=== PATIENT | female | born 1935 | race Asian ===

== ENCOUNTER 2019-02-14 15:58 | Inpatient (IN) | payer OTHER, MEDICAID ==
[~2019-02-14] VITALS: Ht 160 cm; Wt 54.4 kg
[2019-02-14 16:16] VITALS: BP_SYST 130
[2019-02-14] MEDS ORDERED: CARB-61 PO (16:22)
[2019-02-14] MEDS ORDERED: [UNRECOGNIZED DRUG - CODE] PO (16:22)
[2019-02-14] MEDS ORDERED: LINA290C PO (16:30)
[2019-02-14] MEDS ORDERED: DOCU250C14 PO (16:30)
[2019-02-14] MEDS ORDERED: HYDR-4038 PO (16:30)
[2019-02-14] MEDS ORDERED: AMLO5TAB4 PO (16:30)
[2019-02-14] MEDS ORDERED: VITD2000 PO (16:30)
[2019-02-14] MEDS ORDERED: CALC500T3 PO (16:30)
[2019-02-14] MEDS ORDERED: DEXL60CA4 PO (16:30)
[2019-02-14] MEDS ORDERED: RIVA15TA PO (16:30)
[2019-02-14] MEDS ORDERED: PRAM1TAB4 PO (16:30)
[2019-02-14 17:14] LABS: BASOPHILS % (AUTO) 0.5 % (0.0-2.0); EOSINOPHILS # (AUTO) 0.1 K/uL (0.0-0.4); EOSINOPHILS % (AUTO) 1.4 % (0.0-4.0); HEMATOCRIT 41.5 % (36-48); HEMOGLOBIN 13.8 g/dL (12.0-16.0); LYMPHOCYTES % (AUTO) 16.9 % (20.5-51.5); MEAN CORPUSCULAR HEMOGLOBIN 32 pg (27-31); MEAN CORPUSCULAR HGB CONC 33 % (32-36); MEAN CORPUSCULAR VOLUME 96 fL (79.0-98.0); MONOCYTES # (AUTO) 0.5 K/uL (0.0-1.0); MONOCYTES % (AUTO) 8.4 % (1.7-9.3); NEUTROPHILS # (AUTO) 4.3 K/uL (1.8-7.7); NEUTROPHILS % (AUTO) 72.8 % (40.0-70.0); PLATELET COUNT (AUTO) 121 K/uL (130-430); RED BLOOD CELL COUNT(AUTO) 4.35 MIL/uL (4.2-6.2); RED CELL DISTRIBUTION WIDTH 13.9 % (9.0-15.0); WHITE BLOOD COUNT (AUTO) 5.9 K/uL (4.8-10.8)
[2019-02-14 17:25] LABS: ANION GAP 8 (5-15); CALCIUM 9.2 mg/dL (8.4-11.0); CHLORIDE 106 mmol/L (98-107); CREATININE 1.12 mg/dL (0.55-1.30); GLUCOSE 113 mg/dL (70-99); POTASSIUM 3.9 mmol/L (3.5-5.1); SODIUM SERUM 137 mmol/L (136-145); UREA NITROGEN, BLOOD 39 mg/dL (8-21)
[2019-02-14 17:29] LABS: ALANINE AMINOTRANSFERASE 11 U/L (12-78); ALBUMIN 3.6 g/dL (3.4-4.8); ASPARTATE AMINOTRANSFERASE 14 U/L (10-37); TOTAL BILIRUBIN 0.9 mg/dL (0.0-1.0)
[2019-02-14 17:41] LABS: BILIRUBIN,URINE NEGATIVE (NEGATIVE); BLOOD, URINE NEGATIVE (NEGATIVE); CLARITY/URINE SL CLOUDY (CLEAR); COLOR,URINE YELLOW (YELLOW); GLUCOSE,URINE NEGATIVE (NEGATIVE); KETONES,URINE TRACE (NEGATIVE); LEUKOCYTE ESTERASE ,URINE 1+ (NEGATIVE); NITRITE, URINE POSITIVE (NEGATIVE); PH,URINE 5.5 (5.0-8.0); PROTEIN URINE TRACE (NEGATIVE)
[2019-02-14 17:45] LABS: BACTERIA,URINE MANY /HPF (None Seen); MUCUS,URINE 2+ /LPF (None Seen); WBC,URINE 20-50 /HPF (0-3)
[2019-02-14] MEDS ORDERED: LORazepam 2 MG/ML VIAL (FOR ER USE) IM ONE (18:00)
[2019-02-14] MEDS ORDERED: LORazepam 2 MG/ML VIAL (FOR ER USE) ONE (18:03)
[2019-02-14] MEDS ORDERED: KETAMINE 30 MG/3 ML SYRINGE IVP ONE (18:30)
[2019-02-14] MEDS ORDERED: HALOPERIDOL LACTATE 5 MG/ML VIAL IVP ONE (19:15)
[2019-02-14] MEDS ORDERED: cefTRIAXone 1 GM IVPB PREMIX 50 ML IV ONE (19:45)
[2019-02-14 20:14] VITALS: BP_SYST 155
[2019-02-14] MEDS: CALCIUM 500 MG/TAB PO SCH (21:00)
[2019-02-14] MEDS: hydrALAZINE HCL 25 MG TABLET PO SCH (21:00)
[2019-02-14] MEDS: KCL 20 mEq in D5/0.45NS 1000mL 1,000 ML IV SCH (21:45)
[2019-02-14] MEDS ORDERED: KCL 20 mEq in D5/0.45NS 1000mL 1,000 ML IV ONE (21:46)
[2019-02-14] MEDS ORDERED: LEVODOPA PO SCH (22:00)
[2019-02-14] MEDS ORDERED: CARBIDOPA PO SCH (22:00)
[2019-02-14] MEDS: CARBIDOPA/LEVODOPA 25/100 MG TABLET PO SCH (22:00)
[2019-02-15] VITALS (12 sets, daily range): BP systolic 135–163
[2019-02-15] MEDS ORDERED: CEFEPIME 1 GM in D5W 50 ML IV SCH (00:30)
[2019-02-15] MEDS ORDERED: CEFEPIME 1 GM/VIAL (MAXIPIME) ONE (01:03)
[2019-02-15] MEDS: CHOLECALCIFEROL (VITAMIN D3) 2,000 UNIT TABLET PO SCH (09:00)
[2019-02-15] MEDS: CALCIUM 500 MG/TAB PO SCH ×2 (09:00→21:06)
[2019-02-15] MEDS: hydrALAZINE HCL 25 MG TABLET PO SCH ×3 (09:00→21:07)
[2019-02-15] MEDS ORDERED: NON-FORMULARY MEDICATION (Linaclotide (Linzess) 290 MCG) PO SCH (09:00)
[2019-02-15] MEDS: PRAMIPEXOLE DI-HCL 1 MG TABLET PO SCH (09:00)
[2019-02-15] MEDS: RIVAROXABAN 15 MG TABLET PO SCH (09:00)
[2019-02-15] MEDS: PANTOPRAZOLE SODIUM 40 MG TAB PO SCH (09:00)
[2019-02-15] MEDS: amLODIPine BESYLATE 5 MG TABLET PO SCH (09:00)
[2019-02-15] MEDS: DOCUSATE SODIUM 250 MG CAPSULE PO SCH (09:00)
[2019-02-15] MEDS: CARBIDOPA/LEVODOPA 25/100 MG TABLET PO SCH ×4 (10:00→21:07)
[2019-02-15] MEDS ORDERED: FLUMAZENIL 0.1 MG/ML IVP ONE ×2 (10:30→12:45)
[2019-02-15] MEDS: KCL 20 mEq in D5/0.45NS 1000mL 1,000 ML IV SCH (11:09)
[2019-02-15] MEDS: hydrALAZINE HCL 20 MG/ML VIAL IVP PRN (17:59)
[2019-02-15] MEDS: CEFEPIME 1 GM in D5W 50 ML IV SCH (21:07)
[2019-02-16] VITALS (24 sets, daily range): BP systolic 106–163
[2019-02-16] MEDS: KCL 20 mEq in D5/0.45NS 1000mL 1,000 ML IV SCH ×3 (00:09→17:02)
[2019-02-16] MEDS: hydrALAZINE HCL 20 MG/ML VIAL IVP PRN (02:33)
[2019-02-16] MEDS ORDERED: DILTIAZEM HCL 25 MG/5 ML VIAL ONE (04:50)
[2019-02-16] MEDS ORDERED: DILTIAZEM HCL 125 MG/25 ML VIAL IV ONE (04:51)
[2019-02-16] MEDS ORDERED: DILTIAZEM HCL 125 MG in D5W 100 ML IV SCH (05:00)
[2019-02-16] MEDS ORDERED: DILTIAZEM HCL 25 MG/5 ML VIAL IVP ONE (05:00)
[2019-02-16] MEDS: CARBIDOPA/LEVODOPA 25/100 MG TABLET PO SCH ×5 (06:03→22:14)
[2019-02-16 06:14] LABS: BASOPHILS % (AUTO) 0.1 % (0.0-2.0); EOSINOPHILS % (AUTO) 0.1 % (0.0-4.0); HEMATOCRIT 45.4 % (36-48); HEMOGLOBIN 14.8 g/dL (12.0-16.0); LYMPHOCYTES # (AUTO) 0.3 K/uL (1.0-5.5); LYMPHOCYTES % (AUTO) 2.3 % (20.5-51.5); MEAN CORPUSCULAR HEMOGLOBIN 31 pg (27-31); MEAN CORPUSCULAR HGB CONC 33 % (32-36); MEAN CORPUSCULAR VOLUME 96 fL (79.0-98.0); MONOCYTES # (AUTO) 0.9 K/uL (0.0-1.0); MONOCYTES % (AUTO) 6.7 % (1.7-9.3); NEUTROPHILS # (AUTO) 12.2 K/uL (1.8-7.7); NEUTROPHILS % (AUTO) 90.8 % (40.0-70.0); PLATELET COUNT (AUTO) 147 K/uL (130-430); RED BLOOD CELL COUNT(AUTO) 4.75 MIL/uL (4.2-6.2); RED CELL DISTRIBUTION WIDTH 13.7 % (9.0-15.0); WHITE BLOOD COUNT (AUTO) 13.5 K/uL (4.8-10.8)
[2019-02-16 06:43] LABS: INR 0.9 (0.8-1.2); PROTHROMBIN TIME 9.5 SECS (9.5-12.5)
[2019-02-16 06:44] LABS: ANION GAP 12 (5-15); CALCIUM 9.4 mg/dL (8.4-11.0); CHLORIDE 109 mmol/L (98-107); CREATININE 0.78 mg/dL (0.55-1.30); GLUCOSE 185 mg/dL (70-99); POTASSIUM 3.4 mmol/L (3.5-5.1); SODIUM SERUM 144 mmol/L (136-145); UREA NITROGEN, BLOOD 26 mg/dL (8-21)
[2019-02-16 06:56] LABS: PHOSPHORUS 2.6 mg/dL (2.7-4.5)
[2019-02-16] MEDS: CALCIUM 500 MG/TAB PO SCH ×2 (09:24→22:14)
[2019-02-16] MEDS: AMIODARONE HCL 200 MG TABLET PO SCH ×2 (09:26→22:13)
[2019-02-16] MEDS: CHOLECALCIFEROL (VITAMIN D3) 2,000 UNIT TABLET PO SCH (09:26)
[2019-02-16] MEDS: DOCUSATE SODIUM 250 MG CAPSULE PO SCH (09:26)
[2019-02-16] MEDS: PANTOPRAZOLE SODIUM 40 MG TAB PO SCH (09:26)
[2019-02-16] MEDS: hydrALAZINE HCL 25 MG TABLET PO SCH ×3 (09:27→22:14)
[2019-02-16] MEDS: amLODIPine BESYLATE 5 MG TABLET PO SCH (09:28)
[2019-02-16] MEDS: PRAMIPEXOLE DI-HCL 1 MG TABLET PO SCH (09:30)
[2019-02-16] MEDS: RIVAROXABAN 15 MG TABLET PO SCH (09:31)
[2019-02-16] MEDS ORDERED: COMMUNICATION ORDER XX ONE (10:45)
[2019-02-16] MEDS: CARBIDOPA/LEVODOPA CR 50/200 MG TAB NG SCH ×4 (11:25→22:18)
[2019-02-16] MEDS ORDERED: CARBIDOPA/LEVODOPA CR 50/200 MG TAB PO SCH ×2 (14:00→22:00)
[2019-02-16] MEDS ORDERED: *TOBRAMYCIN PER PHARMACY XX PRN (18:00)
[2019-02-16] MEDS ORDERED: TOBRAMYCIN SULFATE 80 MG in NS 50 ML IV SCH (20:00)
[2019-02-16] MEDS: metroNIDAZOLE 500 mg/NS 100 ML IV SCH (22:15)
[2019-02-16] MEDS: CEFEPIME 1 GM in D5W 50 ML IV SCH (22:26)
[2019-02-17] VITALS (24 sets, daily range): BP systolic 97–170
[2019-02-17] MEDS: hydrALAZINE HCL 20 MG/ML VIAL IVP PRN (03:09)
[2019-02-17 05:18] LABS: BASOPHILS % (AUTO) 0.3 % (0.0-2.0); EOSINOPHILS % (AUTO) 0.3 % (0.0-4.0); HEMOGLOBIN 13.6 g/dL (12.0-16.0); LYMPHOCYTES # (AUTO) 0.8 K/uL (1.0-5.5); LYMPHOCYTES % (AUTO) 5.8 % (20.5-51.5); MEAN CORPUSCULAR HEMOGLOBIN 31 pg (27-31); MEAN CORPUSCULAR HGB CONC 32 % (32-36); MEAN CORPUSCULAR VOLUME 97 fL (79.0-98.0); MONOCYTES # (AUTO) 1.1 K/uL (0.0-1.0); MONOCYTES % (AUTO) 8.1 % (1.7-9.3); NEUTROPHILS # (AUTO) 11.5 K/uL (1.8-7.7); NEUTROPHILS % (AUTO) 85.5 % (40.0-70.0); PLATELET COUNT (AUTO) 141 K/uL (130-430); RED BLOOD CELL COUNT(AUTO) 4.34 MIL/uL (4.2-6.2); RED CELL DISTRIBUTION WIDTH 14.4 % (9.0-15.0); WHITE BLOOD COUNT (AUTO) 13.5 K/uL (4.8-10.8)
[2019-02-17 05:44] LABS: ALANINE AMINOTRANSFERASE 14 U/L (12-78); ALBUMIN 2.9 g/dL (3.4-4.8); ANION GAP 8 (5-15); ASPARTATE AMINOTRANSFERASE 19 U/L (10-37); CALCIUM 8.6 mg/dL (8.4-11.0); CHLORIDE 109 mmol/L (98-107); CHOLESTEROL 142 mg/dL (<200); CREATININE 0.68 mg/dL (0.55-1.30); GLUCOSE 161 mg/dL (70-99); HDL CHOLESTEROL 61 mg/dL (>55); LDL CHOLESTEROL 71 mg/dL (<100); SODIUM SERUM 139 mmol/L (136-145); TOTAL BILIRUBIN 0.8 mg/dL (0.0-1.0); TRIGLYCERIDES 59 mg/dL (30-150); UREA NITROGEN, BLOOD 23 mg/dL (8-21)
[2019-02-17] MEDS: CARBIDOPA/LEVODOPA 25/100 MG TABLET PO SCH ×5 (06:15→21:02)
[2019-02-17] MEDS: CARBIDOPA/LEVODOPA CR 50/200 MG TAB NG SCH ×5 (06:16→21:03)
[2019-02-17] MEDS: metroNIDAZOLE 500 mg/NS 100 ML IV SCH ×2 (08:57→21:03)
[2019-02-17] MEDS: KCL 20 mEq in D5/0.45NS 1000mL 1,000 ML IV SCH (08:57)
[2019-02-17] MEDS: AMIODARONE HCL 200 MG TABLET PO SCH ×2 (08:58→20:59)
[2019-02-17] MEDS: CALCIUM 500 MG/TAB PO SCH ×2 (08:59→20:58)
[2019-02-17] MEDS: amLODIPine BESYLATE 5 MG TABLET PO SCH (08:59)
[2019-02-17] MEDS: RIVAROXABAN 15 MG TABLET PO SCH (08:59)
[2019-02-17] MEDS: PANTOPRAZOLE SODIUM 40 MG TAB PO SCH (08:59)
[2019-02-17] MEDS: CHOLECALCIFEROL (VITAMIN D3) 2,000 UNIT TABLET PO SCH (08:59)
[2019-02-17] MEDS: DOCUSATE SODIUM 250 MG CAPSULE PO SCH (08:59)
[2019-02-17] MEDS: hydrALAZINE HCL 25 MG TABLET PO SCH ×3 (09:00→21:00)
[2019-02-17] MEDS: PRAMIPEXOLE DI-HCL 1 MG TABLET PO SCH (09:22)
[2019-02-17] MEDS: ACETAMINOPHEN 650 MG/20.3 ML UDC GT PRN (09:22)
[2019-02-17] MEDS ORDERED: MORPHINE 2 MG/ML INJ. SYRINGE IVP ONE (11:00)
[2019-02-17] MEDS: NS IV SCH (13:52)
[2019-02-17] MEDS: AMIKACIN SULFATE IV SCH (13:52)
[2019-02-17] MEDS: CEFEPIME 1 GM in D5W 50 ML IV SCH (21:03)
[2019-02-18] VITALS (7 sets, daily range): BP systolic 109–168
[2019-02-18] MEDS: ACETAMINOPHEN 650 MG/20.3 ML UDC GT PRN (00:19)
[2019-02-18] MEDS: hydrALAZINE HCL 20 MG/ML VIAL IVP PRN (00:20)
[2019-02-18] MEDS: KCL 20 mEq in D5/0.45NS 1000mL 1,000 ML IV SCH ×3 (00:21→16:09)
[2019-02-18] MEDS: CARBIDOPA/LEVODOPA 25/100 MG TABLET PO SCH ×5 (05:04→22:30)
[2019-02-18] MEDS: CARBIDOPA/LEVODOPA CR 50/200 MG TAB NG SCH ×5 (05:04→22:00)
[2019-02-18 07:27] LABS: BASOPHILS % (AUTO) 0.4 % (0.0-2.0); EOSINOPHILS # (AUTO) 0.1 K/uL (0.0-0.4); EOSINOPHILS % (AUTO) 0.6 % (0.0-4.0); HEMATOCRIT 36.8 % (36-48); LYMPHOCYTES # (AUTO) 0.8 K/uL (1.0-5.5); LYMPHOCYTES % (AUTO) 8.3 % (20.5-51.5); MEAN CORPUSCULAR HEMOGLOBIN 32 pg (27-31); MEAN CORPUSCULAR HGB CONC 33 % (32-36); MEAN CORPUSCULAR VOLUME 97 fL (79.0-98.0); MONOCYTES # (AUTO) 0.9 K/uL (0.0-1.0); MONOCYTES % (AUTO) 9.6 % (1.7-9.3); NEUTROPHILS # (AUTO) 7.6 K/uL (1.8-7.7); NEUTROPHILS % (AUTO) 81.1 % (40.0-70.0); WHITE BLOOD COUNT (AUTO) 9.4 K/uL (4.8-10.8)
[2019-02-18 08:08] LABS: ANION GAP 6 (5-15); CALCIUM 8.3 mg/dL (8.4-11.0); CHLORIDE 107 mmol/L (98-107); CREATININE 0.63 mg/dL (0.55-1.30); GLUCOSE 153 mg/dL (70-99); POTASSIUM 3.9 mmol/L (3.5-5.1); SODIUM SERUM 138 mmol/L (136-145); UREA NITROGEN, BLOOD 22 mg/dL (8-21)
[2019-02-18 08:44] LABS: PLATELET COUNT (AUTO) 110 K/uL (130-430)
[2019-02-18] MEDS: CALCIUM 500 MG/TAB PO SCH ×2 (09:20→22:00)
[2019-02-18] MEDS: DOCUSATE SODIUM 250 MG CAPSULE PO SCH (09:20)
[2019-02-18] MEDS: PANTOPRAZOLE SODIUM 40 MG TAB PO SCH (09:20)
[2019-02-18] MEDS: CHOLECALCIFEROL (VITAMIN D3) 2,000 UNIT TABLET PO SCH (09:20)
[2019-02-18] MEDS: amLODIPine BESYLATE 5 MG TABLET PO SCH (09:20)
[2019-02-18] MEDS: AMIODARONE HCL 200 MG TABLET PO SCH ×2 (09:21→21:59)
[2019-02-18] MEDS: metroNIDAZOLE 500 mg/NS 100 ML IV SCH ×2 (09:22→21:57)
[2019-02-18] MEDS: hydrALAZINE HCL 25 MG TABLET PO SCH ×3 (09:25→22:00)
[2019-02-18] MEDS: RIVAROXABAN 15 MG TABLET PO SCH (09:26)
[2019-02-18] MEDS: AMIKACIN SULFATE IV SCH (11:52)
[2019-02-18] MEDS: PRAMIPEXOLE DI-HCL 1 MG TABLET PO SCH (11:52)
[2019-02-18] MEDS: NS IV SCH (11:52)
[2019-02-19] MEDS: CARBIDOPA/LEVODOPA 25/100 MG TABLET PO SCH ×5 (06:18→21:09)
[2019-02-19] MEDS: CARBIDOPA/LEVODOPA CR 50/200 MG TAB NG SCH ×5 (06:19→21:09)
[2019-02-19 07:55] VITALS: BP_SYST 100
[2019-02-19] MEDS: hydrALAZINE HCL 25 MG TABLET PO SCH ×3 (09:00→21:10)
[2019-02-19] MEDS: CALCIUM 500 MG/TAB PO SCH ×2 (09:04→21:09)
[2019-02-19] MEDS: metroNIDAZOLE 500 mg/NS 100 ML IV SCH ×2 (09:04→21:08)
[2019-02-19] MEDS: DOCUSATE SODIUM 250 MG CAPSULE PO SCH (09:04)
[2019-02-19] MEDS: CHOLECALCIFEROL (VITAMIN D3) 2,000 UNIT TABLET PO SCH (09:05)
[2019-02-19] MEDS: PANTOPRAZOLE SODIUM 40 MG TAB PO SCH (09:05)
[2019-02-19] MEDS: AMIODARONE HCL 200 MG TABLET PO SCH ×2 (09:05→21:09)
[2019-02-19] MEDS: amLODIPine BESYLATE 5 MG TABLET PO SCH (09:07)
[2019-02-19] MEDS: RIVAROXABAN 15 MG TABLET PO SCH (09:08)
[2019-02-19] MEDS: PRAMIPEXOLE DI-HCL 1 MG TABLET PO SCH (10:50)
[2019-02-19] MEDS: KCL 20 mEq in D5/0.45NS 1000mL 1,000 ML IV SCH (10:57)
[2019-02-19 11:08] VITALS: BP_SYST 149
[2019-02-19] MEDS: NS IV SCH (12:23)
[2019-02-19] MEDS: AMIKACIN SULFATE IV SCH (12:23)
[2019-02-19 16:05] VITALS: BP_SYST 140
[2019-02-19 20:00] VITALS: BP_SYST 128
[2019-02-20 00:47] VITALS: BP_SYST 148
[2019-02-20] MEDS: KCL 20 mEq in D5/0.45NS 1000mL 1,000 ML IV SCH ×2 (01:20→13:17)
[2019-02-20] MEDS: CARBIDOPA/LEVODOPA 25/100 MG TABLET PO SCH ×4 (05:54→18:00)
[2019-02-20] MEDS: CARBIDOPA/LEVODOPA CR 50/200 MG TAB NG SCH ×4 (05:54→18:00)
[2019-02-20 07:50] LABS: BASOPHILS % (AUTO) 0.3 % (0.0-2.0); EOSINOPHILS # (AUTO) 0.1 K/uL (0.0-0.4); EOSINOPHILS % (AUTO) 0.9 % (0.0-4.0); HEMATOCRIT 36.9 % (36-48); HEMOGLOBIN 12.2 g/dL (12.0-16.0); LYMPHOCYTES # (AUTO) 0.6 K/uL (1.0-5.5); LYMPHOCYTES % (AUTO) 7.3 % (20.5-51.5); MEAN CORPUSCULAR HEMOGLOBIN 32 pg (27-31); MEAN CORPUSCULAR HGB CONC 33 % (32-36); MEAN CORPUSCULAR VOLUME 96 fL (79.0-98.0); MONOCYTES # (AUTO) 0.9 K/uL (0.0-1.0); MONOCYTES % (AUTO) 11.1 % (1.7-9.3); NEUTROPHILS # (AUTO) 6.8 K/uL (1.8-7.7); NEUTROPHILS % (AUTO) 80.4 % (40.0-70.0); PLATELET COUNT (AUTO) 114 K/uL (130-430); RED BLOOD CELL COUNT(AUTO) 3.85 MIL/uL (4.2-6.2); RED CELL DISTRIBUTION WIDTH 13.9 % (9.0-15.0); WHITE BLOOD COUNT (AUTO) 8.5 K/uL (4.8-10.8)
[2019-02-20 07:53] LABS: ANION GAP 4 (5-15); CALCIUM 8.7 mg/dL (8.4-11.0); CHLORIDE 104 mmol/L (98-107); CREATININE 0.53 mg/dL (0.55-1.30); GLUCOSE 150 mg/dL (70-99); POTASSIUM 4.7 mmol/L (3.5-5.1); SODIUM SERUM 134 mmol/L (136-145); UREA NITROGEN, BLOOD 23 mg/dL (8-21)
[2019-02-20 07:58] LABS: ALANINE AMINOTRANSFERASE 9 U/L (12-78); ALBUMIN 2.4 g/dL (3.4-4.8); ASPARTATE AMINOTRANSFERASE 17 U/L (10-37); TOTAL BILIRUBIN 0.7 mg/dL (0.0-1.0)
[2019-02-20] MEDS: DOCUSATE SODIUM 250 MG CAPSULE PO SCH (09:00)
[2019-02-20] MEDS: CHOLECALCIFEROL (VITAMIN D3) 2,000 UNIT TABLET PO SCH (10:56)
[2019-02-20] MEDS: amLODIPine BESYLATE 5 MG TABLET PO SCH (10:57)
[2019-02-20] MEDS: hydrALAZINE HCL 25 MG TABLET PO SCH ×3 (10:58→21:39)
[2019-02-20] MEDS: PANTOPRAZOLE SODIUM 40 MG TAB PO SCH (11:01)
[2019-02-20] MEDS: RIVAROXABAN 15 MG TABLET PO SCH (11:01)
[2019-02-20] MEDS: AMIODARONE HCL 200 MG TABLET PO SCH ×2 (11:02→21:38)
[2019-02-20] MEDS: CALCIUM 500 MG/TAB PO SCH ×2 (11:03→21:39)
[2019-02-20] MEDS: metroNIDAZOLE 500 mg/NS 100 ML IV SCH ×2 (11:17→21:37)
[2019-02-20] MEDS: NS IV SCH (13:16)
[2019-02-20] MEDS: AMIKACIN SULFATE IV SCH (13:16)
[2019-02-20 14:17] VITALS: BP_SYST 148
[2019-02-20 16:15] VITALS: BP_SYST 165
[2019-02-20 19:00] VITALS: BP_SYST 139
[2019-02-20] MEDS ORDERED: COMMUNICATION ORDER XX ONE (19:45)
[2019-02-20 20:00] VITALS: BP_SYST 139
[2019-02-20] MEDS ORDERED: CARBIDOPA/LEVODOPA CR 50/200 MG TAB PO ONE (21:30)
[2019-02-20] MEDS ORDERED: CARBIDOPA/LEVODOPA 25/100 MG TABLET PO ONE (21:30)
[2019-02-21 00:22] VITALS: BP_SYST 136
[2019-02-21] MEDS: KCL 20 mEq in D5/0.45NS 1000mL 1,000 ML IV SCH ×2 (01:20→05:46)
[2019-02-21 08:30] VITALS: BP_SYST 159
[2019-02-21] MEDS: DOCUSATE SODIUM 250 MG CAPSULE PO SCH ×2 (09:00→09:18)
[2019-02-21] MEDS: AMIODARONE HCL 200 MG TABLET PO SCH ×2 (09:16→22:40)
[2019-02-21] MEDS: PANTOPRAZOLE SODIUM 40 MG TAB PO SCH (09:17)
[2019-02-21] MEDS: RIVAROXABAN 15 MG TABLET PO SCH (09:17)
[2019-02-21] MEDS: CARBIDOPA/LEVODOPA 25/100 MG TABLET NG SCH ×4 (09:17→22:39)
[2019-02-21] MEDS: CHOLECALCIFEROL (VITAMIN D3) 2,000 UNIT TABLET PO SCH (09:18)
[2019-02-21] MEDS: CALCIUM 500 MG/TAB PO SCH (09:18)
[2019-02-21] MEDS: hydrALAZINE HCL 25 MG TABLET PO SCH ×3 (09:18→22:39)
[2019-02-21] MEDS: metroNIDAZOLE 500 mg/NS 100 ML IV SCH ×2 (09:19→22:38)
[2019-02-21] MEDS: amLODIPine BESYLATE 5 MG TABLET PO SCH (09:19)
[2019-02-21] MEDS: CARBIDOPA/LEVODOPA CR 50/200 MG TAB GT SCH ×4 (10:00→22:39)
[2019-02-21] MEDS: NS IV SCH (12:45)
[2019-02-21] MEDS: AMIKACIN SULFATE IV SCH (12:45)
[2019-02-21 12:47] VITALS: BP_SYST 127
[2019-02-21 16:44] VITALS: BP_SYST 130
[2019-02-21 20:46] VITALS: BP_SYST 132
[2019-02-21] MEDS: CALCIUM 500 MG/TAB GT SCH (22:38)
[2019-02-22] MEDS: KCL 20 mEq in D5/0.45NS 1000mL 1,000 ML IV SCH ×2 (01:19→16:18)
[2019-02-22 03:10] VITALS: BP_SYST 145
[2019-02-22 08:15] VITALS: BP_SYST 132
[2019-02-22] MEDS: DOCUSATE SODIUM 100 MG/10 ML UDC NG SCH (08:42)
[2019-02-22] MEDS: CARBIDOPA/LEVODOPA CR 50/200 MG TAB GT SCH ×5 (08:45→22:34)
[2019-02-22] MEDS: CALCIUM 500 MG/TAB GT SCH ×2 (08:45→22:33)
[2019-02-22] MEDS: CHOLECALCIFEROL (VITAMIN D3) 2,000 UNIT TABLET NG SCH (08:46)
[2019-02-22] MEDS: CARBIDOPA/LEVODOPA 25/100 MG TABLET NG SCH ×5 (08:46→22:34)
[2019-02-22] MEDS: hydrALAZINE HCL 25 MG TABLET NG SCH ×3 (08:47→22:33)
[2019-02-22] MEDS: AMIODARONE HCL 200 MG TABLET NG SCH ×2 (08:47→22:33)
[2019-02-22] MEDS: amLODIPine BESYLATE 5 MG TABLET NG SCH (08:48)
[2019-02-22] MEDS: LANSOPRAZOLE 30 MG CAPSULE.DR NG SCH (08:49)
[2019-02-22] MEDS: metroNIDAZOLE 500 mg/NS 100 ML IV SCH ×2 (08:49→22:35)
[2019-02-22] MEDS: RIVAROXABAN 15 MG TABLET NG SCH (08:49)
[2019-02-22 12:30] VITALS: BP_SYST 126
[2019-02-22] MEDS: NS IV SCH (12:34)
[2019-02-22] MEDS: AMIKACIN SULFATE IV SCH (12:34)
[2019-02-22 16:41] VITALS: BP_SYST 137
[2019-02-22] MEDS: cefTRIAXone 1 GM in D5W 50 ML IV SCH (17:33)
[2019-02-22 20:00] VITALS: BP_SYST 130
[2019-02-23 05:08] LABS: BASOPHILS % (AUTO) 0.2 % (0.0-2.0); EOSINOPHILS # (AUTO) 0.1 K/uL (0.0-0.4); EOSINOPHILS % (AUTO) 1.1 % (0.0-4.0); HEMATOCRIT 33.9 % (36-48); HEMOGLOBIN 11.2 g/dL (12.0-16.0); LYMPHOCYTES # (AUTO) 0.3 K/uL (1.0-5.5); LYMPHOCYTES % (AUTO) 4.3 % (20.5-51.5); MEAN CORPUSCULAR HEMOGLOBIN 32 pg (27-31); MEAN CORPUSCULAR HGB CONC 33 % (32-36); MEAN CORPUSCULAR VOLUME 96 fL (79.0-98.0); MONOCYTES # (AUTO) 1.1 K/uL (0.0-1.0); MONOCYTES % (AUTO) 13.4 % (1.7-9.3); NEUTROPHILS # (AUTO) 6.4 K/uL (1.8-7.7); PLATELET COUNT (AUTO) 177 K/uL (130-430); RED BLOOD CELL COUNT(AUTO) 3.54 MIL/uL (4.2-6.2); RED CELL DISTRIBUTION WIDTH 13.7 % (9.0-15.0); WHITE BLOOD COUNT (AUTO) 7.8 K/uL (4.8-10.8)
[2019-02-23 05:24] LABS: ANION GAP 7 (5-15); CALCIUM 7.4 mg/dL (8.4-11.0); CHLORIDE 104 mmol/L (98-107); CREATININE 0.66 mg/dL (0.55-1.30); GLUCOSE 145 mg/dL (70-99); POTASSIUM 4.3 mmol/L (3.5-5.1); SODIUM SERUM 136 mmol/L (136-145); UREA NITROGEN, BLOOD 20 mg/dL (8-21)
[2019-02-23 05:32] LABS: ALANINE AMINOTRANSFERASE 13 U/L (12-78); ALBUMIN 2.1 g/dL (3.4-4.8); ASPARTATE AMINOTRANSFERASE 18 U/L (10-37); TOTAL BILIRUBIN 0.5 mg/dL (0.0-1.0)
[2019-02-23] MEDS: CARBIDOPA/LEVODOPA 25/100 MG TABLET NG SCH ×5 (06:58→19:03)
[2019-02-23] MEDS: CARBIDOPA/LEVODOPA CR 50/200 MG TAB GT SCH ×4 (06:59→16:07)
[2019-02-23 09:30] VITALS: BP_SYST 163
[2019-02-23] MEDS: DOCUSATE SODIUM 100 MG/10 ML UDC NG SCH (10:03)
[2019-02-23] MEDS: LANSOPRAZOLE 30 MG CAPSULE.DR NG SCH (10:06)
[2019-02-23] MEDS: CHOLECALCIFEROL (VITAMIN D3) 2,000 UNIT TABLET NG SCH (10:06)
[2019-02-23] MEDS: CALCIUM 500 MG/TAB GT SCH ×2 (10:06→21:00)
[2019-02-23] MEDS: hydrALAZINE HCL 25 MG TABLET NG SCH ×3 (10:07→21:00)
[2019-02-23] MEDS: AMIODARONE HCL 200 MG TABLET NG SCH ×2 (10:07→21:00)
[2019-02-23] MEDS: amLODIPine BESYLATE 5 MG TABLET NG SCH (10:08)
[2019-02-23] MEDS: RIVAROXABAN 15 MG TABLET NG SCH (10:09)
[2019-02-23] MEDS: metroNIDAZOLE 500 mg/NS 100 ML IV SCH (10:10)
[2019-02-23] MEDS: KCL 20 mEq in D5/0.45NS 1000mL 1,000 ML IV SCH (10:10)
[2019-02-23] MEDS ORDERED: COMMUNICATION ORDER XX ONE (11:00)
[2019-02-23 14:34] VITALS: BP_SYST 113
[2019-02-23] MEDS: cefTRIAXone 1 GM in D5W 50 ML IV SCH (16:10)
[2019-02-23 16:36] VITALS: BP_SYST 120
[2019-02-23] MEDS: CARBIDOPA/LEVODOPA CR 50/200 MG TAB NG SCH (19:03)
[2019-02-23 20:00] VITALS: BP_SYST 164
[2019-02-23] MEDS: hydrALAZINE HCL 20 MG/ML VIAL IVP PRN (22:30)
[2019-02-23 23:26] VITALS: BP_SYST 120
[2019-02-24] MEDS: KCL 20 mEq in D5/0.45NS 1000mL 1,000 ML IV SCH ×2 (03:29→17:18)
[2019-02-24] MEDS: CARBIDOPA/LEVODOPA CR 50/200 MG TAB GT SCH ×4 (07:30→17:18)
[2019-02-24] MEDS: CARBIDOPA/LEVODOPA 25/100 MG TABLET NG SCH ×5 (07:30→18:54)
[2019-02-24 08:10] VITALS: BP_SYST 136
[2019-02-24] MEDS: CHOLECALCIFEROL (VITAMIN D3) 2,000 UNIT TABLET NG SCH (09:00)
[2019-02-24] MEDS: AMIODARONE HCL 200 MG TABLET NG SCH ×3 (09:00→21:29)
[2019-02-24] MEDS: DOCUSATE SODIUM 100 MG/10 ML UDC NG SCH (09:00)
[2019-02-24] MEDS: hydrALAZINE HCL 25 MG TABLET NG SCH ×3 (09:00→21:30)
[2019-02-24] MEDS: CALCIUM 500 MG/TAB GT SCH ×2 (09:00→21:29)
[2019-02-24] MEDS: LANSOPRAZOLE 30 MG CAPSULE.DR NG SCH ×2 (09:00→11:14)
[2019-02-24] MEDS: amLODIPine BESYLATE 5 MG TABLET NG SCH ×2 (09:00→11:16)
[2019-02-24 12:00] VITALS: BP_SYST 129
[2019-02-24 16:31] VITALS: BP_SYST 119
[2019-02-24] MEDS: cefTRIAXone 1 GM in D5W 50 ML IV SCH (17:18)
[2019-02-24] MEDS: CARBIDOPA/LEVODOPA CR 50/200 MG TAB NG SCH (18:54)
[2019-02-24 20:00] VITALS: BP_SYST 150
[2019-02-25 00:22] VITALS: BP_SYST 129
[2019-02-25 07:08] LABS: BASOPHILS % (AUTO) 0.1 % (0.0-2.0); EOSINOPHILS # (AUTO) 0.1 K/uL (0.0-0.4); EOSINOPHILS % (AUTO) 1.1 % (0.0-4.0); HEMATOCRIT 36.8 % (36-48); HEMOGLOBIN 12.1 g/dL (12.0-16.0); LYMPHOCYTES # (AUTO) 0.5 K/uL (1.0-5.5); LYMPHOCYTES % (AUTO) 6.7 % (20.5-51.5); MEAN CORPUSCULAR HEMOGLOBIN 32 pg (27-31); MEAN CORPUSCULAR HGB CONC 33 % (32-36); MEAN CORPUSCULAR VOLUME 96 fL (79.0-98.0); MONOCYTES # (AUTO) 0.7 K/uL (0.0-1.0); MONOCYTES % (AUTO) 9.1 % (1.7-9.3); NEUTROPHILS # (AUTO) 6.6 K/uL (1.8-7.7); PLATELET COUNT (AUTO) 258 K/uL (130-430); RED BLOOD CELL COUNT(AUTO) 3.85 MIL/uL (4.2-6.2); RED CELL DISTRIBUTION WIDTH 13.5 % (9.0-15.0)
[2019-02-25] MEDS: CARBIDOPA/LEVODOPA 25/100 MG TABLET NG SCH ×5 (07:30→19:07)
[2019-02-25] MEDS: CARBIDOPA/LEVODOPA CR 50/200 MG TAB GT SCH ×3 (07:30→15:31)
[2019-02-25 07:39] LABS: INR 0.9 (0.8-1.2); PROTHROMBIN TIME 9.3 SECS (9.5-12.5)
[2019-02-25 07:50] VITALS: BP_SYST 153
[2019-02-25 07:57] LABS: ANION GAP 9 (5-15); CALCIUM 7.8 mg/dL (8.4-11.0); CHLORIDE 106 mmol/L (98-107); CREATININE 0.64 mg/dL (0.55-1.30); GLUCOSE 128 mg/dL (70-99); POTASSIUM 4.1 mmol/L (3.5-5.1); SODIUM SERUM 140 mmol/L (136-145); UREA NITROGEN, BLOOD 15 mg/dL (8-21)
[2019-02-25] MEDS ORDERED: CEFAZOLIN 1 GM IVPB PREMIX 50 ML IV ONE (08:00)
[2019-02-25] MEDS ORDERED: SIMETHICONE 40 MG/0.6 ML ML ONE (08:06)
[2019-02-25] MEDS ORDERED: MEPERIDINE HCL/PF 100 MG/ML AMP ONE (08:07)
[2019-02-25] MEDS ORDERED: MIDAZOLAM HCL 5 MG/5 ML VIAL ONE (08:20)
[2019-02-25] MEDS: hydrALAZINE HCL 25 MG TABLET NG SCH ×3 (09:00→20:32)
[2019-02-25] MEDS: amLODIPine BESYLATE 5 MG TABLET NG SCH (09:00)
[2019-02-25 11:40] VITALS: BP_SYST 128
[2019-02-25 11:43] VITALS: BP_SYST 118
[2019-02-25] MEDS: DOCUSATE SODIUM 100 MG/10 ML UDC NG SCH (12:08)
[2019-02-25] MEDS: CALCIUM 500 MG/TAB GT SCH ×2 (12:09→20:32)
[2019-02-25] MEDS: CHOLECALCIFEROL (VITAMIN D3) 2,000 UNIT TABLET NG SCH (12:10)
[2019-02-25] MEDS: AMIODARONE HCL 200 MG TABLET NG SCH ×2 (12:10→20:32)
[2019-02-25] MEDS: LANSOPRAZOLE 30 MG CAPSULE.DR NG SCH (12:10)
[2019-02-25] MEDS: KCL 20 mEq in D5/0.45NS 1000mL 1,000 ML IV SCH (12:37)
[2019-02-25 16:04] VITALS: BP_SYST 116
[2019-02-25] MEDS: cefTRIAXone 1 GM in D5W 50 ML IV SCH (16:43)
[2019-02-25] MEDS: CARBIDOPA/LEVODOPA CR 50/200 MG TAB NG SCH (19:07)
[2019-02-25 20:00] VITALS: BP_SYST 117
[2019-02-26 00:39] VITALS: BP_SYST 118
[2019-02-26] MEDS: KCL 20 mEq in D5/0.45NS 1000mL 1,000 ML IV SCH ×2 (01:12→12:00)
[2019-02-26] MEDS: CARBIDOPA/LEVODOPA CR 50/200 MG TAB GT SCH ×4 (06:40→16:09)
[2019-02-26] MEDS: CARBIDOPA/LEVODOPA 25/100 MG TABLET NG SCH ×5 (06:40→18:25)
[2019-02-26 07:25] LABS: ANION GAP 8 (5-15); CHLORIDE 105 mmol/L (98-107); CREATININE 0.68 mg/dL (0.55-1.30); GLUCOSE 167 mg/dL (70-99); POTASSIUM 4.6 mmol/L (3.5-5.1); SODIUM SERUM 136 mmol/L (136-145); UREA NITROGEN, BLOOD 15 mg/dL (8-21)
[2019-02-26] MEDS: DOCUSATE SODIUM 100 MG/10 ML UDC NG SCH (08:17)
[2019-02-26] MEDS: amLODIPine BESYLATE 5 MG TABLET NG SCH (08:18)
[2019-02-26] MEDS: CHOLECALCIFEROL (VITAMIN D3) 2,000 UNIT TABLET NG SCH (08:19)
[2019-02-26] MEDS: LANSOPRAZOLE 30 MG CAPSULE.DR NG SCH (08:19)
[2019-02-26] MEDS: hydrALAZINE HCL 25 MG TABLET NG SCH ×2 (08:19→16:10)
[2019-02-26] MEDS: CALCIUM 500 MG/TAB GT SCH (08:19)
[2019-02-26] MEDS: AMIODARONE HCL 200 MG TABLET NG SCH (08:20)
[2019-02-26 08:36] LABS: BASOPHILS % (AUTO) 0.1 % (0.0-2.0); EOSINOPHILS % (AUTO) 0.1 % (0.0-4.0); HEMATOCRIT 34.5 % (36-48); HEMOGLOBIN 11.4 g/dL (12.0-16.0); LYMPHOCYTES # (AUTO) 0.5 K/uL (1.0-5.5); LYMPHOCYTES % (AUTO) 6.6 % (20.5-51.5); MEAN CORPUSCULAR HEMOGLOBIN 32 pg (27-31); MEAN CORPUSCULAR HGB CONC 33 % (32-36); MEAN CORPUSCULAR VOLUME 96 fL (79.0-98.0); MONOCYTES # (AUTO) 0.5 K/uL (0.0-1.0); MONOCYTES % (AUTO) 6.9 % (1.7-9.3); NEUTROPHILS # (AUTO) 6.7 K/uL (1.8-7.7); NEUTROPHILS % (AUTO) 86.3 % (40.0-70.0); PLATELET COUNT (AUTO) 285 K/uL (130-430); RED BLOOD CELL COUNT(AUTO) 3.59 MIL/uL (4.2-6.2); RED CELL DISTRIBUTION WIDTH 13.6 % (9.0-15.0); WHITE BLOOD COUNT (AUTO) 7.8 K/uL (4.8-10.8)
[2019-02-26 08:46] VITALS: BP_SYST 120
[2019-02-26] MEDS ORDERED: RIVAROXABAN 10 MG TABLET GT SCH (09:00)
[2019-02-26 12:27] VITALS: BP_SYST 110
[2019-02-26 16:08] VITALS: BP_SYST 127
[2019-02-26] MEDS: cefTRIAXone 1 GM in D5W 50 ML IV SCH (16:11)
[2019-02-26 17:03] VITALS: BP_SYST 128
[2019-02-26] MEDS: CARBIDOPA/LEVODOPA CR 50/200 MG TAB NG SCH (18:25)
== END 2019-02-26 18:40 | DRG 871 ==
LOC: SED 15:58 → SMU 19:41 → STU 02-15 10:44 → SIC 02-15 14:07 → STU 02-17 23:37 → SMU 02-25 20:43
PROVIDERS: ADMIT Family Medicine; ATTEND Family Medicine
PROC: 05HY33Z Insertion of Infusion Device into Upper Vein, Percutaneous Approach (ICD-10-PCS; 2019-02-16)
PROC: B54NZZA Ultrasonography of Left Upper Extremity Veins, Guidance (ICD-10-PCS; 2019-02-16)
PROC: 0DH63UZ Insertion of Feeding Device into Stomach, Percutaneous Approach (ICD-10-PCS; principal; 2019-02-25 08:00)
DX: A41.9 Sepsis, unspecified organism (principal); J69.0 Pneumonitis due to inhalation of food and vomit; G92 Toxic encephalopathy; N39.0 Urinary tract infection, site not specified; I10 Essential (primary) hypertension; G20 Parkinson's disease; B96.20 Unspecified Escherichia coli [E. coli] as the cause of diseases classified elsewhere; Z16.24 Resistance to multiple antibiotics; K29.70 Gastritis, unspecified, without bleeding; F02.80 Dementia in other diseases classified elsewhere, unspecified severity, without behavioral disturbance, psychotic disturbance, mood disturbance, and anxiety; I48.0 Paroxysmal atrial fibrillation; D64.9 Anemia, unspecified; R13.10 Dysphagia, unspecified; R29.6 Repeated falls; T42.6X5A Adverse effect of other antiepileptic and sedative-hypnotic drugs, initial encounter; W18.30XA Fall on same level, unspecified, initial encounter; Y93.89 Activity, other specified; Y99.8 Other external cause status; Y92.89 Other specified places as the place of occurrence of the external cause; Z86.73 Personal history of transient ischemic attack (TIA), and cerebral infarction without residual deficits; Z90.49 Acquired absence of other specified parts of digestive tract; Z99.3 Dependence on wheelchair; Z87.440 Personal history of urinary (tract) infections; Z79.01 Long term (current) use of anticoagulants; Z79.899 Other long term (current) drug therapy; Z86.718 Personal history of other venous thrombosis and embolism
CPT/HCPCS: 36415; 36600; 43246; 70450-TC; 71045; 80048; 80053; 80061; 80150; 81000-TC; 82550-TC; 82803-TC; 83605; 83735-TC; 83880; 84100-TC; 84443-TC; 84484; 85025; 85610-TC; 85730-TC; 87040-TC; 87081; 87086; 87186-TC; 92610-GN; 93005; 93306; 94760; 95816; 96372; 96374; 97110-GP; 97530-GP; 99285; C1751; G0378; J0278; J0360; J0690; J0692; J0696; J1630; J2060; J2175; J2250; J2270; J3260; J3490; J7050; J7060